=== PATIENT | male | born 1985 | race Caucasian/White ===

== ENCOUNTER 2018-02-20 05:19 | Emergency (ER) | payer OTHER ==
[~2018-02-20] VITALS: Ht 172.7 cm; Wt 102.1 kg
[2018-02-20 05:26] VITALS: Ht 172.7 cm; Wt 102.1 kg
[2018-02-20 06:18] VITALS: BP 134/87
== END 2018-02-20 06:18 | disposition home or self-care (01) ==
LOC: ED 05:19
DX: S39.012A Strain of muscle, fascia and tendon of lower back, initial encounter (principal); X58.XXXA Exposure to other specified factors, initial encounter; Y93.89 Activity, other specified; Y92.830 Public park as the place of occurrence of the external cause; Y99.8 Other external cause status
CPT/HCPCS: J1885